=== PATIENT | male | born 1960 | race Caucasian/White ===

== ENCOUNTER 2021-08-27 01:45 | Emergency (ER) | payer MEDICARE, SELFPAY ==
--- NOTE | ~2021-08-27 | XR_ITS ---
EXAMINATION: XR elbow RT min 3V INDICATION: Right elbow pain TECHNIQUE: Three views of the right elbow are obtained. COMPARISON: None available FINDINGS: There is a large elbow joint effusion. There appears to be subtle sclerosis at the radial h ead/neck junction. 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 IMPRESSION: 1. Elbow joint effusion and apparent subtle sclerosis at the radial head/neck junction, consistent wi th nondisplaced proximal radius fracture. Reviewed, dictated and finalized at location A. IMPRESSION: 1. Elbow joint effusion and apparent subtle sclerosis at the radial head/neck j unction, consistent with nondisplaced proximal radius fracture.
--- NOTE | ~2021-08-27 | XR_ITS ---
EXAMINATION: XR shoulder RT min 2V INDICATION: Right shoulder pain after fall TECHNIQUE: Four views of the left shoulder are submitted. COMPARISON: None FINDINGS: Normal alignment. No fracture. There is moderate glenohumeral and acromioclavicular joint o steoarthritis. Soft tissues are unremarkable. IMPRESSION: 1. No acute osseous abnormality. Reviewed, dictated and finalized at location A.
[2021-08-27 01:48] VITALS: BP 165/90; PULSE 63; RESP 18; TEMP 36.1; O2SAT 99
[2021-08-27 03:08] VITALS: BP 131/86; PULSE 65; RESP 18; O2SAT 97
[2021-08-27 03:15] VITALS: O2SAT 98
[2021-08-27] MEDS: KETOROLAC (*BKC) 60 MG/2 ML VIAL IM (03:43)
--- NOTE | 2021-08-27 04:02 | ED.UPPEXIN ---
HPI - Extremity Injury (Upper) General Chief Complaint: Fall Stated Complaint: fall, Elbow pain Time Seen by Provider: 08/27/21 02:49 Source: patient Mode of arrival: ambulatory Limitations: no limitations History of Present Illness HPI narrative: 60-year-old male presents emergency room secondary to pain to the right elbow. Patient states he tripped over a box at home landing on the right elbow has had pain ever since. Happened just prior to presentation to the emergency department. Denies any other concurrent injuries associated with this. States it hurts with any movement at the elbow. No pain to the shoulder. Did not take anything for pain prior to coming to emergency room. Related Data Allergies Allergy/AdvReac Type Severity Reaction Status Date / Time No Known Allergies Allergy Verified 09/16/16 07:06 Review of Systems Review of Systems: CONSTITUTIONAL: Denies fever, chills, or sweats. EYES: Denies visual changes, redness, or discharge. ENT: Denies rhinorrhea, congestion, sore throat, or otalgia. CARDIOVASCULAR: Denies chest pain, palpitations, or edema. RESPIRATORY: Denies cough or dyspnea. GASTROINTESTINAL: Denies abdominal pain, nausea, vomiting, or diarrhea. GENITOURINARY: Denies dysuria or hematuria. SKIN: Denies rash or itching. MUSCULOSKELETAL: Denies any back pain or neck pain. He is having significant pain to the right elbow. NEUROLOGIC: Denies headache, numbness, or weakness. PSYCHIATRIC: Denies anxiety or depression. [facility] Past Medical History Medical History (Updated 08/27/21 @ 04:07 by Fortunato Young DO) Hypertension Family History Family History Other Family history of arthritis Social History Social History Smoking status: Never smoker Exam Narrative: APPEARANCE: Patient appears to be in mild distress secondary to pain. Head normocephalic and atraumatic. EYES: PERRLA/EOMI, conjunctivae very clear. NOSE: Normal with no drainage EARS:TMS clear Sonia Neves, with good light reflex. THROAT: Pharynx clear, no exudate. NECK: Supple. No adenopathy, no masses. No tenderness to palpation with full range of motion RESPIRATORY: Airway patent, respirations nonlabored. Clear to auscultation bilaterally, no rales, rhonchi, wheezing. CARDIOVASCULAR: Regular rate and rhythm without murmurs, rubs, or gallops. ABDOMINAL: Soft, nontender, nondistended, no hepatosplenomegaly Musculoskeletal: Significant swelling noted to the right elbow with decreased range of motion and pain with any motion or palpation. No tenderness to the right wrist or the shoulder. NEURO: Alert. Cranial nerves II through XII intact. Normal gait. Good coordination. Nonfocal examination. SKIN:: Warm, dry. Normal Color PSYCHIATRIC: Normal affect/mood, normal interaction Course Vital Signs Vital signs: Vital Signs Temperature 96.9 F L 08/27/21 01:48 Pulse Rate 63 08/27/21 01:48 Respiratory Rate 18 08/27/21 01:48 Blood Pressure 165/90 H 08/27/21 01:48 Pulse Oximetry 99 08/27/21 01:48 Temperature 96.9 F L 08/27/21 01:48 Pulse Rate 65 08/27/21 03:08 Respiratory Rate 18 08/27/21 03:08 Blood Pressure 131/86 08/27/21 03:08 Pulse Oximetry 98 08/27/21 03:15 MDM - Extremity Injury (Upper) MDM Narrative Medical decision making narrative: Patient has significant swelling and pain to the right elbow. There is fat pad noted on x-ray concerning for an occult radial head fracture. This was explained to the patient. Splint was applied and fitted with a sling. Referred to follow-up with orthopedics. Imaging Data My impression: Fat pad noted concerning for an occult radial head fracture Discharge Plan Discharge Clinical Impression: Occult fracture of elbow Qualifiers: Encounter type: initial encounter Fracture type: closed Laterality: right Qualified Code(s): S42.401A - Unspecified fracture of l
[2021-08-27 05:04] VITALS: BP 144/72; PULSE 82; RESP 16; O2SAT 100
== END 2021-08-27 05:05 | disposition home or self-care (01) ==
PROVIDERS: Emergency Provider Emergency Medicine; PCP Family Medicine
DX: S52.101A Unspecified fracture of upper end of right radius, initial encounter for closed fracture (principal); I10 Essential (primary) hypertension; W18.09XA Striking against other object with subsequent fall, initial encounter
CPT/HCPCS: 29105; 73030; 73080; 99284; J1885

== ENCOUNTER 2024-01-19 05:48 | Emergency (ER) | payer MEDICARE, SELFPAY ==
[2024-01-19] VITALS (9 sets, daily range): BP systolic 100–131; BP diastolic 55–78; PULSE 53–60; RESP 12–18; TEMP 36.4; O2SAT 93–96
--- NOTE | ~2024-01-19 | XR_ITS ---
Clinical Indication: Chest pressure PA and lateral views of the chest: Comparison: None Findings: The lungs are clear, without evidence of focal consolidation or pleural effusion. Cardiome diastinal silhouette is within normal limits. Bones and soft tissues are unremarkable. Impression: Normal chest. Reviewed, dictated and finalized at location . Impression: Normal chest.
--- NOTE | 2024-01-19 05:49 | ECG_ITS ---
Test Date: 2024-01-19 06:03:51 Measurements Intervals [place] Rate: 58 P: 17 [place]: 218 QRS: -4 QRSD: 97 T: 46 QT: 457 QTc: 449 Interpretive Statements SINUS BRADYCARDIA WITH FIRST DEGREE AV BLOCK BORDERLINE ECG No previous ECG available for comparison Electronically Signed On 01-19-2024 07:41:07 CDT by Aníbal Nava D.O.
[2024-01-19] MEDS: ASPIRIN 81 MG CHEWABLE TABLET 324 MG PO (06:01)
[2024-01-19 06:21] LABS: Basophils Percent Auto 0.9 % (0.2-1.2); Eosinophils Absolute Auto 0.2 K/mm3 (0-0.3); Eosinophils Percent Auto 4.9 % (0-4.4); Hematocrit 39.6 % (42.0-52.0); Hemoglobin 13.6 g/dL (14.0-18.0); Immature Granulocyte Absolute 0.01 K/mm3 (0.00-0.031); Immature Granulocyte Percent A 0.3 % (0-0.5); Immature Platelet Fraction Pct 6.4 % (0.9-11.2); Lymphocytes Absolute Auto 0.72 K/mm3 (0.9-3.2); Lymphocytes Percent Auto 21.9 % (18.3-44.2); Mean Corpuscular HGB Conc 34.3 g/dl (32-36); Mean Corpuscular Hemoglobin 35.1 pg (26-34); Mean Corpuscular Volume 102.1 fl (80-100); Mean Platelet Volume 10.3 fl (7.4-10.4); Monocytes Absolute Auto 0.4 K/mm3 (0.1-0.6); Monocytes Percent Auto 12.8 % (2.6-8.5); Neutrophils Percent Auto 59.2 % (45.5-73.1); Platelet Count Result 66 k/mm3 (150-375); Red Blood Count 3.88 M/mm3 (4.6-6.20); Red Cell Distribution Width 12.8 % (11.5-14.5); White Blood Count 3.3 K/mm3 (4.5-10.0)
[2024-01-19 06:29] LABS: INR 1.2; Prothrombin Time 15.6 Seconds (11.1-14.7)
[2024-01-19 06:30] LABS: Alanine Aminotransferase 27 U/L (6-50); Albumin Level 3.2 g/dL (3.5-5.1); Alkaline Phosphatase 140 U/L (38-126); Anion Gap 7 mmol/L (4-12); Aspartate Amino Transferase 44 U/L (17-59); Bilirubin,Total 1.4 mg/dL (0.2-1.3); Blood Urea Nitrogen 14 mg/dL (9-20); Calcium 8.5 mg/dL (8.4-10.2); Carbon Dioxide 28 mmol/L (22-30); Chloride 104 mmol/L (98-107); Estimated CRCL calculation 111 ml/min; Estimated Glomerular Filt Rate > 60; Glucose 112 mg/dL (65-110); Lipase 295 U/L (23-300); Partial Thromboplastin Time 35.1 Seconds (22.3-36.8); Potassium 3.5 mmol/L (3.4-5.0); Sodium 139 mmol/L (137-145)
[2024-01-19 06:41] LABS: Troponin I < 0.012 ng/mL (0.000-0.034)
[2024-01-19] MEDS: FAMOTIDINE 20 MG/2 ML VIAL IV PUSH (07:02)
--- NOTE | 2024-01-19 07:19 | PC.NURSE ---
Assumed care of pt. Pt resting on stretcher. Dr. Drew at bedside.
--- NOTE | 2024-01-19 07:42 | ED.CHESTPAIN ---
HPI - Chest Pain General Chief Complaint: Chest Pain Stated Complaint: chest pain/heartburn Time Seen by Provider: 01/19/24 06:54 History of Present Illness HPI narrative: Patient has been having some central chest/epigastric discomfort, gassiness, ongoing for the last few days. No radiation of pain, no nausea vomiting, does have some slight shortness of breath and cough Related Data Home Medications Medication Instructions Recorded Confirmed metoprolol tartrate 25 mg tablet 25 mg PO BID 09/02/21 furosemide 20 mg tablet 20 mg PO DAILY 01/19/24 01/19/24 gabapentin 300 mg capsule 300 mg PO TID 01/19/24 01/19/24 pramipexole 0.25 mg tablet 0.25 mg PO HS 01/19/24 01/19/24 spironolactone 50 mg tablet 50 mg PO DAILY 01/19/24 01/19/24 Allergies Allergy/AdvReac Type Severity Reaction Status Date / Time No Known Allergies Allergy Verified 09/02/21 13:23 Review of Systems Review of Systems: All systems reviewed & are unremarkable except as noted in HPI and below PMFSH Past Medical History Medical History History of back pain Hypertension Surgical History Surgical History History of ankle surgery History of neck surgery History of right knee joint replacement History of surgery on arm Family History Family History Father Hypertension Mother Hypertension Other Family history of arthritis Social History Social History Smoking status: Never smoker Alcohol intake: current Alcohol use details: beer-socially Substance use: never Living arrangements: alone Occupation/Education: retired Gender identity (if verbalized by the patient): Male Exam Narrative: EXAMINATION OF ORGAN SYSTEMS/BODY AREAS: Constitutional: Vital signs per nursing GENERAL:[No acute distress, non-toxic appearing.] HEAD: Normal with no signs of head trauma. EYES: EOMI, conjunctiva normal ENT: Hearing grossly intact LUNGS: Nonlabored breathing. HEART: [Regular rate and rhythm] ABD: [Soft], [nontender to palpation] EXT: Normal range of motion SKIN: [No rashes or lesions.] NEURO: [Alert and oriented x 3. No gross focal sensory or strength deficits.] PSYCH: Normal affect Course Vital Signs Vital signs: Vital Signs Temperature 97.6 F 01/19/24 05:56 Pulse Rate 60 01/19/24 05:56 Respiratory Rate 17 01/19/24 05:56 Blood Pressure 100/55 L 01/19/24 05:56 Pulse Oximetry 96 01/19/24 05:56 Oxygen Delivery Room Air 01/19/24 05:56 Temperature 97.6 F 01/19/24 07:01 Pulse Rate 53 L 01/19/24 10:00 Respiratory Rate 16 01/19/24 10:00 Blood Pressure 123/65 01/19/24 10:00 Pulse Oximetry 96 01/19/24 10:00 Oxygen Delivery Room Air 01/19/24 06:16 MDM - Chest Pain MDM Narrative Medical decision making narrative: ED COURSE AND MEDICAL DECISION MAKIN-year-old male presenting with chest/epigastric discomfort/gassy. EKG done in triage negative for acute ischemic changes. Cardiac workup is initiated. EKG: Performed in triage and interpreted by me. Normal sinus rhythm. Rate 58. Normal axis. VA prolonged. QRS duration normal. QTc normal. No pathologic Q waves. No ST segment elevation or depression to suggest acute ischemia. HEART score is 2 with no acute ischemic changes on EKG and negative troponin making ACS unlikely. No DVT symptoms or risk factors making PE unlikely. Presentation not consistent with dissection or aneurysm without radiation of pain or pulse deficits. CXR negative for mediastinal widening. No abdominal pain or signs of sepsis that would be concerning for esophageal perforation or mediastinitis. No cardiomegaly or JVD to suggest pericardial effusion/tamponade. Patient is treated with Pepcid and Maalox. On repeat evaluation just prior to d
[2024-01-19] MEDS: MAG HYDROX/AL HYDROX/SIMETH 30 ML UDC PO (08:09)
--- NOTE | 2024-01-19 08:43 | ECG_ITS ---
Test Date: 2024-01-19 08:46:24 Measurements Intervals [place] Rate: 51 P: 22 [place]: 211 QRS: -1 QRSD: 97 T: 23 QT: 482 QTc: 447 Interpretive Statements SINUS BRADYCARDIA WITH FIRST DEGREE AV BLOCK INCOMPLETE RIGHT BUNDLE BRANCH BLOCK BORDERLINE ECG Compared to ECG 01/19/2024 06:03:51 No significant changes Electronically Signed On 01-19-2024 08:49:14 CDT by Aníbal Nava D.O.
[2024-01-19 09:05] LABS: Troponin I < 0.012 ng/mL (0.000-0.034)
--- NOTE | 2024-01-19 09:32 | PC.NURSE ---
Pt reports relief from Maalox.
== END 2024-01-19 10:12 | disposition home or self-care (01) ==
PROVIDERS: Emergency Medicine; Emergency Provider Emergency Medicine; PCP Family Medicine
DX: R07.89 Other chest pain (principal); I10 Essential (primary) hypertension
CPT/HCPCS: 36415; 71046; 80053; 83690; 84484; 85025; 85055; 85610; 85730; 93005; 96374; 99284; A9270